=== PATIENT | male | born 1940 | race Caucasian/White ===

== ENCOUNTER 2017-04-30 23:36 | Emergency (ER) | payer MEDICARE, OTHER ==
[~2017-04-30] VITALS: Ht 175.3 cm; Wt 88.0 kg
[~2017-04-30 23:36] MED LIST: ALDACTONE25 MG PO; ASPIRIN EC81 MG PO; ATENOLOL25 MG PO; ATORVASTATIN CA80 MG PO; AUGMENTIN 875-1 EACH PO; CELECOXIB200 MG PO; CLOPIDOGREL75 MG PO; COREG6.25 MG PO; CYCLOBENZAPRINE10 MG PO; DULCOLAX5 MG PO; FERROUS SULFAT325 MG PO; HYDROCODON-ACE1 EAC8 PO; ISOSORBIDE MONO30 MG PO; ISOSORBIDE MONO60 MG PO; KLOR-CON 1010 MEQ PO; LASIX40 MG PO; LEVOTHYROXINE112 MCG PO; MAGNESIUM CITR296 ML PO; MECLIZINE HCL25 MG PO; MELATONIN5 M2 PO; MIRALAX17 GM PO; NITROSTAT0.4 MG SL; OMEPRAZOLE20 MG PO; PEPCID40 MG PO; PRAVASTATIN SOD20 MG PO; TAMSULOSIN HCL0.4 MG PO; TRAMADOL HCL50 MG PO; VITAMIN D1000 UNIT PO
--- NOTE | 2017-05-01 13:07 | EKG ---
[facility] [address] [facility] [place], [place] [address] Signed Sinus rhythm with frequent premature ventricular complexes in a pattern of bigeminy Right bundle branch block Possible Lateral infarct , age undetermined Inferior infarct , age undetermined Abnormal ECG No previous ECGs available Confirmed by BRIA TORREZ MD ([id number]) on 05/01/2017 1:07:07 PM Electronically Signed By: BRIA TORREZ MD 05/01/17 1307 PATIENT NAME: JANIEJESSE Andrew Electrocardiogram DATE OF : 38 PHYSICIAN: BRIA TORREZ MD REPORT #: [id number] REPORT IS CONFIDENTIAL AND NOT TO BE RELEASED WITHOUT AUTHORIZATION
== END 2017-05-01 02:17 | disposition home or self-care (01) ==
LOC: ED 23:36
DX: I50.9 Heart failure, unspecified (principal); I25.2 Old myocardial infarction; Z87.891 Personal history of nicotine dependence; Z85.038 Personal history of other malignant neoplasm of large intestine; Z79.899 Other long term (current) drug therapy; Z79.82 Long term (current) use of aspirin; Z79.891 Long term (current) use of opiate analgesic
CPT/HCPCS: 71010; 80053; 83735; 83880; 84484; 85025; 93005; 93010; 96374; 99284

== ENCOUNTER 2017-06-18 16:37 | Emergency (ER) | payer MEDICARE, OTHER ==
[~2017-06-18] VITALS: Ht 175.3 cm; Wt 87.5 kg
[2017-06-18] MEDS ORDERED: ALLOPURINOL100 MG PO (16:51)
== END 2017-06-18 19:46 | disposition home or self-care (01) ==
LOC: ED 16:37
PROC: 0HQ1XZZ Repair Face Skin, External Approach (ICD-10-PCS; principal; 2017-06-18)
DX: L76.21 Postprocedural hemorrhage of skin and subcutaneous tissue following a dermatologic procedure (principal); Z79.82 Long term (current) use of aspirin; I25.2 Old myocardial infarction; Z85.038 Personal history of other malignant neoplasm of large intestine; Z95.5 Presence of coronary angioplasty implant and graft; Z95.1 Presence of aortocoronary bypass graft; Z79.891 Long term (current) use of opiate analgesic; Z79.899 Other long term (current) drug therapy
CPT/HCPCS: 12011; 99282

== ENCOUNTER 2017-10-27 16:47 | Emergency (ER) | payer MEDICARE, OTHER ==
[~2017-10-27] VITALS: Ht 175.3 cm; Wt 87.5 kg
[~2017-10-27 16:47] MED LIST changes: +ALLOPURINOL100 MG PO
--- OUTSIDE RECORDS SUMMARY | 2017-10-27 18:27 | XMS | Clinical Summary ---
Demographics + + + | Address | [address] | | | [place] [address] | + + + | Home Phone | | + + + | Preferred Language | Unknown | + + + | Marital Status | | + + + | Islam Affiliation | Unknown | + + + | Race | White | + + + | Ethnic Group | Not or | + + + Author + + + | Author | [facility] | + + + | Organization | [facility] | + + + | Address | Unknown | + + + | Phone | Unavailable | + + + Care Team Providers + +------+ + | Care Metal Slitter Name | Role | Phone | + +------+ + PP | Unavailable | + +------+ + Source Comments [facility] is [facility] and [facility] Allergies Not on File Current Medications Not on file Active Problems Not on file Social History + +-------+ +--------+------+ | Tobacco Use | Types | Packs/Day | Years | Date | | | | | Used | | + +-------+ +--------+------+ | Never Assessed | | | | | + +-------+ +--------+------+ + + + | Sex Assigned at | Date Recorded | | | | + + + | Not on file | | + + + Plan of Treatment + + + + + | Health Maintenance | Due Date | Last Done | Comments | + + + + + | INFLUENZA VACCINE | | | | | (FLU SHOT) | 7 | | | + + + + + Results Not on filefrom Last 3 Months"
--- OUTSIDE RECORDS SUMMARY | 2017-10-27 18:27 | XMS | Clinical Summary ---
Demographics + + + | Address | [address] | | | [place] [address] | + + + | Home Phone | | + + + | Preferred Language | Unknown | + + + | Marital Status | | + + + | Advent Affiliation | Unknown | + + + | Race | White | + + + | Ethnic Group | Not or | + + + Author + + + | Author | [facility] | + + + | Organization | [facility] | + + + | Address | Unknown | + + + | Phone | Unavailable | + + + Care Team Providers + +------+ + | Care Flitch Hanger Name | Role | Phone | + +------+ + PP | Unavailable | + +------+ + Source Comments [facility] and [facility] In[facility] Allergies Not on File Current Medications [...]
[2017-10-27] MEDS ORDERED: ZITHROMAX250 MG PO (19:19)
== END 2017-10-27 19:36 | disposition home or self-care (01) ==
LOC: ED 16:47
DX: J20.9 Acute bronchitis, unspecified (principal); I25.2 Old myocardial infarction; Z95.1 Presence of aortocoronary bypass graft; Z95.5 Presence of coronary angioplasty implant and graft; Z79.82 Long term (current) use of aspirin; Z79.899 Other long term (current) drug therapy
CPT/HCPCS: 36415; 71046; 80053; 85025; 99284

== ENCOUNTER → 2017-10-29 | Emergency (ER) | payer MEDICARE, OTHER ==
[~2017-10-29] VITALS: Ht 175.3 cm; Wt 87.1 kg
[~2017-10-29] MED LIST changes: +ZITHROMAX250 MG PO
--- OUTSIDE RECORDS SUMMARY | ~2017-10-29 | XMS | Clinical Summary ---
Demographics + + + | Address | [address] | | | [place] [address] | + + + | Home Phone | | + + + | Preferred Language | Unknown | + + + | Marital Status | | + + + | Jewish Affiliation | Unknown | + + + | Race | White | + + + | Ethnic Group | Not or | + + + Author + + + | Author | [facility] | + + + | Organization | [facility] | + + + | Address | Unknown | + + + | Phone | Unavailable | + + + Care Team Providers + +------+ + | Care C.O.D. Biller Name | Role | Phone | + +------+ + PP | Unavailable | + +------+ + Source Comments JESSICA is fully live on both [facility] and [facility] InPatient.[facility] Allergies Not on File Current Medications Not [...]
--- OUTSIDE RECORDS SUMMARY | ~2017-10-29 | XMS | Clinical Summary ---
Demographics + + + | Address | [address] | | | [place] [address] | + + + | Home Phone | | + + + | Preferred Language | Unknown | + + + | Marital Status | | + + + | Mandaeism Affiliation | Unknown | + + + | Race | White | + + + | Ethnic Group | Not or | + + + Author + + + | Author | [facility] | + + + | Organization | [facility] | + + + | Address | Unknown | + + + | Phone | Unavailable | + + + Care Team Providers + +------+ + | Care Lay Out Worker Name | Role | Phone | + +------+ + PP | Unavailable | + +------+ + Source Comments [facility] InPatient.[facility] Allergies Not on File Current Medications [...]
--- NOTE | 2017-10-29 12:23 | EKG ---
[facility] [address] [facility] [place] [address] Signed AV dual-paced rhythm Abnormal ECG When compared with ECG of 30-APR-2017 23:44, Electronic ventricular pacemaker has replaced Sinus rhythm Confirmed by JEVON BENSON MD ([id number]) on 10/29/2017 12:23:04 PM Electronically Signed By: JEVON BENSON MD 10/29/17 1223 PATIENT NAME: JESSE LIMA ESE Electrocardiogram DATE OF : 38 PHYSICIAN: JEVON BENSON MD REPORT #: [id number] REPORT IS CONFIDENTIAL AND NOT TO BE RELEASED WITHOUT AUTHORIZATION
--- NOTE | 2017-10-30 12:56 | OR ---
[facility] [address] [place], [place] [address] Signed DATE OF OPERATION: 10/29/2017 SURGEON: Zandra Bansal MD PREOPERATIVE DIAGNOSIS: Probable sepsis, uncertain etiology, need for central venous access. POSTOPERATIVE DIAGNOSIS: Probable sepsis, uncertain etiology, need for central venous access. PROCEDURE: Right internal jugular Arrow blue tip triple-lumen central venous catheter placement. ANESTHESIA: 1% lidocaine. INDICATION: A 77-year-old white man with sepsis of unknown etiology, anticipating transfer to [place], [place]. He has undergone a recent placement of a pacemaker, which was on the left chest and although there is some ecchymosis. I see no evidence of infection in that area. A central venous catheterization has been requested by the emergency room physician and attempted a PICC line previously was unsuccessful. The risks of bleeding, infection, pneumothorax, and so forth were reviewed with the patient and his . They understand and wished to proceed. FINDINGS: Dark nonpulsatile blood was noted from the right internal jugular vein. There was no difficulty in placing the line. DESCRIPTION OF PROCEDURE: In mild Trendelenburg position with the head turned towards the left, the right neck and infraclavicular space were prepared with a chlorhexidine solution and draped sterilely. A 1% lidocaine was injected over the right sternocleidomastoid muscle after sterile draping. Using the Seldinger technique with full glove gown, mask, and so forth, the right internal jugular vein was easily accessed on first pass showing dark nonpulsatile blood. A flexible J-wire was passed through the needle and the needle was removed. The site was incised with an #11 blade and dilated with a blue dilator and a previously inspected and irrigated Arrow blue tip triple-lumen catheter passed over the wire without problem. The wire was removed and aspiration on the distal port showed dark nonpulsatile blood. The catheter was withdrawn a few centimeter, curled in the Electronically Signed By: ZANDRA BANSAL MD 10/30/17 1256 PATIENT NAME: JESSE LIMA OPERATIVE REPORT DATE OF : 38 PHYSICIAN: ZANDRA BANSAL MD REPORT #: [id number] REPORT IS CONFIDENTIAL AND NOT TO BE RELEASED WITHOUT AUTHORIZATION [address] [address] Signed appropriate position, secured with the enclosed collar device and suture. An anti-infective disc was applied as well as a SorbaView dressing. A postprocedure chest x-ray is pending. There were no complications. MD ERNIE Rocha/SUNDAY /[id number] cc: Rojas Ignacio Electronically Signed By: ZANDRA BANSAL MD 10/30/17 1256 PATIENT NAME: JESSE LIMA OPERATIVE REPORT DATE OF : 38 PHYSICIAN: ZANDRA BANSAL MD REPORT #: [id number] REPORT IS CONFIDENTIAL AND NOT TO BE RELEASED WITHOUT AUTHORIZATION
--- NOTE | 2017-10-30 12:56 | CONS ---
[facility] [address] [place], [place] [address] Signed DATE OF CONSULTATION: 10/29/2017 CONSULTING PHYSICIAN: Zandra Bansal MD REQUESTING PHYSICIAN: Dr. Rojas Ignacio PROBLEM: Need for central venous access. HISTORY OF PRESENT ILLNESS: This 77-year-old white man is well known to me from the past. Number of years ago, I repaired an aortic aneurysm on him. He has had colon resection by me for cancer as a complex incisional hernia treatment and management of an advanced enteric fistula. In recent years, he has been markedly troubled by progressive cardiovascular problems and is considered an unlikely candidate for any kind of coronary intervention. 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 He presented to the emergency room with hypotension and listlessness and is considered to have sepsis. A Levophed drip was initiated through a peripheral IV. His blood pressures have been ranging about [address] Ignacio is managing his care and I understand he is to be transferred to [place] for further management. A PICC line was deemed not possible by the PICC line team. He has recently had placement of a left infraclavicular pacemaker defibrillator device. He did have a fair amount of ecchymosis related to that device, but it is resolving. Request is made for central venous catheterization for additional management of pressor agents, fluids and so on. Of note, he has received 3 L of crystalloid solution so far. PHYSICAL EXAMINATION: GENERAL: Elderly man now with a scruffy white davis. He is alert and oriented. His and daughter are present. Trachea is midline. He has no sign of respiratory distress. CHEST: Shows normal respiratory excursion. ABDOMEN: Soft and nontender. An epithelialized incisional hernia is noted. EXTREMITIES: Show no clubbing, cyanosis, or edema. Of note, the patient is taking Plavix. Electronically Signed By: ZANDRA BANSAL MD 10/30/17 1256 PATIENT NAME: JESSE LIMA CONSULTATION DATE OF : 38 PHYSICIAN: ZANDRA BANSAL MD REPORT #: [id number] REPORT IS CONFIDENTIAL AND NOT TO BE RELEASED WITHOUT AUTHORIZATION [facility] [address] [place], [place] [address], [place] [address] Signed ASSESSMENT: The patient needs central venous catheterization for pressor agents, intravenous fluids and other medications. The risks of bleeding, infection, pneumothorax, and other unforeseen complications related to central venous catheter placement have been reviewed with the patient and his . They understand and wished to proceed. MD ERNIE Rocha/SUNDAY /[id number] cc: Rojas Ignacio Electronically Signed By: ZANDRA BANSAL MD 10/30/17 1256 PATIENT NAME: JESSE LIMA CONSULTATION DATE OF : 38 PHYSICIAN: ZANDRA BANSAL MD REPORT #: [id number] REPORT IS CONFIDENTIAL AND NOT TO BE RELEASED WITHOUT AUTHORIZATION
== END ==
LOC: ED 07:35
PROC: 0T9B70Z Drainage of Bladder with Drainage Device, Via Natural or Artificial Opening (ICD-10-PCS; principal; 2017-10-29)
DX: A41.9 Sepsis, unspecified organism (principal); I25.2 Old myocardial infarction; Z95.5 Presence of coronary angioplasty implant and graft; Z79.899 Other long term (current) drug therapy; Z79.2 Long term (current) use of antibiotics; Z79.82 Long term (current) use of aspirin
CPT/HCPCS: 51702; 71045; 80053; 81001; 82803; 83605; 85025; 85379; 87502; 93005; 93010; 96374; 96375; 99285; J1956; J2405; J7120